=== PATIENT | male | born 1965 | race Caucasian/White ===

== ENCOUNTER 2018-05-26 13:59 | Emergency (ER) | payer MEDICAID, OTHER ==
[~2018-05-26] VITALS: Ht 182.9 cm; Wt 113.4 kg
[2018-05-26] MEDS ORDERED: cefTRIAXone SOD 1,000 MG VL IM ONE (16:00)
[2018-05-26] MEDS ORDERED: ALBUTEROL SULF 2.5 MG/0.5ML(0.5%) NEB SOLN NEB ONE (16:00)
[2018-05-26] MEDS ORDERED: methylPREDNISolone SOD SUCC 125 MG/2 ML VL IV ONE (16:00)
[2018-05-26] MEDS ORDERED: IPRATROPIUM BROM 0.5 MG/2.5ML INH SOL NEB ONE (16:00)
[2018-05-26 17:35] VITALS: BP 120/73
[2018-05-26] MEDS ORDERED: methylPREDNISolone SOD SUCC 125 MG/2 ML VL IM ONE (17:35)
== END 2018-05-26 18:20 | disposition home or self-care (01) ==
LOC: ER 14:03
DX: J40 Bronchitis, not specified as acute or chronic (principal); J44.9 Chronic obstructive pulmonary disease, unspecified; Z87.891 Personal history of nicotine dependence
CPT/HCPCS: 71046; 93005; 94640; 96372; 99284; J0696; J2930